=== PATIENT | female | born 1985 | race Caucasian/White ===

== ENCOUNTER 2018-10-08 00:56 | Emergency (ER) | payer OTHER ==
[~2018-10-08] VITALS: Ht 152.4 cm; Wt 60.8 kg
[2018-10-08] MEDS ORDERED: TIROSINT50 MCG (01:16)
[2018-10-08] MEDS ORDERED: KETO10TA2 PO (04:31)
== END 2018-10-08 04:55 | disposition home or self-care (01) ==
LOC: ER 00:56
DX: S62.612A Displaced fracture of proximal phalanx of right middle finger, initial encounter for closed fracture (principal); X50.1XXA Overexertion from prolonged static or awkward postures, initial encounter; Y93.39 Activity, other involving climbing, rappelling and jumping off; Y92.828 Other wilderness area as the place of occurrence of the external cause; Y99.8 Other external cause status